=== PATIENT | female | born 1955 | race Caucasian/White ===

== ENCOUNTER → 2017-01-24 | Day surgery (SDC) | payer MEDICARE, MEDICAID ==
[~2017-01-24] VITALS: Ht 160 cm; Wt 57.7 kg
[~2017-01-24] MED LIST: ARIPIPRAZOLE5 MG PO; CIPRO500 MG PO; CYMBALTA60 MG PO; FERGON325 M1 PO; HYDROCODON-ACE1 EAC4 PO; LEVOTHROID (SY88 MCG PO; MOTRIN800 MG PO; NORVASC5 MG PO; VITAMIN D-40400 UNIT PO; ZANTAC (NON-FO150 MG PO
[2017-01-24 07:45] LABS: PROTIME 10.8 SECONDS (9.6-11.1)
== END ==
LOC: GPOC 01-13 14:00 → GEND 06:49 → EDSTATUS 07:00 → GPOC 07:00
PROVIDERS: Internal Medicine Adolescent Medicine
PROC: 0DJ08ZZ Inspection of Upper Intestinal Tract, Via Natural or Artificial Opening Endoscopic (ICD-10-PCS; principal; 2017-01-24)
PROC: 0F798ZZ Dilation of Common Bile Duct, Via Natural or Artificial Opening Endoscopic (ICD-10-PCS; 2017-01-24)
DX: K83.8 Other specified diseases of biliary tract (principal); F41.9 Anxiety disorder, unspecified; F32.9 Major depressive disorder, single episode, unspecified; E03.9 Hypothyroidism, unspecified; I10 Essential (primary) hypertension; D50.9 Iron deficiency anemia, unspecified; M81.0 Age-related osteoporosis without current pathological fracture; Z90.710 Acquired absence of both cervix and uterus; Z98.41 Cataract extraction status, right eye; Z98.42 Cataract extraction status, left eye; Z98.890 Other specified postprocedural states; Z79.899 Other long term (current) drug therapy
CPT/HCPCS: C1769; J0690; J1100; J1200; J2001; J7030